=== PATIENT | male | born 1990 | race African-American/Black ===

== ENCOUNTER 2016-12-30 02:37 | Emergency (ER) ==
[2016-12-30 02:45] VITALS: BP 153/91
[2016-12-30] MEDS ORDERED: DEMEROL IM ONE (03:09)
[2016-12-30] MEDS ORDERED: PHENERGAN IM ONE (03:09)
--- NOTE | 2016-12-30 03:16 | PROVIDER DOCUMENTATION ---
HPI-Headache - General Chief Complaint: Headache Stated Complaint: MIGRAINE Time Seen by Provider: 12/30/16 03:23 Source: patient Allergies/Adverse Reactions: Patient Allergies Allergy/AdvReac Type Severity Reaction Status Date / Time No Known Allergies Allergy Verified 12/30/16 02:45 - History of Present Illness-Headache Nature of Presenting Problem: hx of migraine no aura nausea w/o vomiting no idea about imitrex Headache Location: reports: frontal (left) Quality of Pain: reports: aching, throbbing Severity: reports: moderate Onset/Duration: reports: 24 hours ago Timing: reports: still present Headache Context: reports: nothing Headache History: reports: occasional headaches, history of migraines Any recent trauma/injury?: reports: none Headache severity at the maximum: moderate Preceding Symptoms: denies: visual disturbances, scotoma, aura(s), typical of previous aura(s) Headache Exacerbated by:: reports: light, noise, movement Modifying Factors: improves with: nothing Associated Symptoms: reports: nausea. denies: fever/chills, vision changes Similar Symptoms Previously?: Yes Recently seen or treated by another doctor?: No Review of Systems - Adult - REVIEW OF SYSTEMS - ADULT Constitutional: reports: no symptoms reported Eyes: denies: dry eyes, decreased vision, blurred vision, double vision, redness Ears, Nose, Mouth & Throat: reports: no symptoms reported Cardiovascular: reports: no symptoms reported Respiratory: reports: no symptoms reported Gastrointestinal: reports: no symptoms reported Genitourinary: reports: no symptoms reported Musculoskeletal: reports: no symptoms reported Integumentary: reports: no symptoms reported Neurological: reports: headache/migraines Psychiatric: reports: no symptoms reported Endocrine: reports: no symptoms reported Hematologic/Lymphatic: reports: no symptoms reported Allergic/Immunologic: reports: no symptoms reported Past History - Adult - PAST MEDICAL HISTORY-ADULT Review of Records: reports: Nursing Assessment Review, Medications Reviewed, Social history reviewed & non-contributory. Major Childhood Illnesses: reports: denies history Cardiovascular: reports: denies history Respiratory: reports: denies history Gastrointestinal: reports: denies history Obstetrical/Gynecological: reports: denies history Genitourinary: reports: denies history Musculoskeletal: reports: denies history Neurological: reports: denies history Psychiatric: reports: anxiety Endocrine/Immune: reports: denies history Other Conditions: reports: denies history - PRIOR SURGERIES/PROCEDURES Surgical/Procedure History: reports: none - PRIOR HOSPITALIZATIONS Prior Hospitalizations: reports: none - IMMUNIZATION STATUS Childhood Immunizations: See Nurse Assessment Flu Vaccine: See Nurse Assessment - FAMILY HISTORY Family History: reviewed, not pertinent - SOCIAL HISTORY Smoking: cigarettes Alcohol Use Frequency: occasionally Physical Exam- Neurological - Physical Exam-Neuro Initial Vital Signs Reviewed: Yes General Appearance: appears well, mild distress Eye Exam: bilateral eye: normal inspection, PERRL, EOMI HENMT: normocephalic/atraumatic, TMs normal Head Injury: no evidence of injury Neck: non-tender, supple. 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 Exam: normal hearing Coordination/Gait: normal finger to nose Motor/Sensory: no motor deficit, no sensory deficit Neurologic: grossly normal Integumentary: normal color Psych/Mental Status: normal mood/affect Departure - Departure Time of Disposition Order: 03:15 DIAGNOSIS: Migraine Qualifiers: Migraine type: unspecified Status migrainosus presence: without status migrainosus Intractability: not intractable Qualified Code(s): G43.909 - Migraine, unspecified, not intractable, without status migrainosus Disposition: HOME 01 Certified Medical Emergency: Emergent Condition: Stable Additional Instructions: ED Follow Up Instructions: You have been treated by a care provider in the Emergency Department. These instructions are being provided to you so you can have an understanding of how to care for yourself upon discharge. Upon discharge from the Emergency Department, you are responsible for making arrangements for follow-up care by a physician of your choice. Take all prescribed medications as directed. Return to the Emergency Department immediately for any new or worsening symptoms. You may call the Physician Referral phone number at [phone] to obtain a list of Physicians who are taking new patients. Referrals: None,PCP [Primary Care Provider] - Maverick Sheridan MD [STAFF PHYSICIAN] -
[2016-12-30] MEDS ORDERED: ZOFRAN ONE (04:00)
[2016-12-30] MEDS ORDERED: ZOFRAN IM ONE (04:05)
== END 2016-12-30 04:21 | disposition home or self-care (01) ==
LOC: P.ED 02:37
DX: G43.909 Migraine, unspecified, not intractable, without status migrainosus (principal); R51 Headache; R11.0 Nausea
CPT/HCPCS: 96372; J2175; J2405